=== PATIENT | female | born 1995 ===

== ENCOUNTER 2018-05-21 10:07 | Emergency (ER) | payer OTHER ==
[2018-05-21] MEDS ORDERED: Famotidine IV* 10 MG/ML 2 ML (20 mg) IV SLOW PU ONE (10:39)
[2018-05-21] MEDS ORDERED: Dexamethasone IV* 4 MG/ML 1 ML (4 MG) IV SLOW PU ONE (10:39)
[2018-05-21] MEDS ORDERED: NS 0.9% 1000 ML* 1,000 ML IV ONE (10:39)
--- NOTE | 2018-05-21 10:46 | ED ---
Allergic Reaction/Systemic - HPI Summary HPI Summary: The pt is a 22 y/o female presenting to [facility] c/o an allergic reaction since 08: 00 hrs today but resolved [employer]. She notes labored breathing, pruritic rash on the UE, and throat tightness and hoarseness but denies wheezing. The sx lasted for about 30 minutes during which she went to the [facility] and received Benadryl and Epinephrine at 09:30 hrs which relieved the sx . She denies any hx of contact allergies but notes allergies to chic peas, daniel beans , lentils, tree nuts and peanuts. The pt only drank apple cider prior to the onset of the sx. Her LNMP was in December 2017 and the pt denies any possibility of . - History of Current Complaint Chief Complaint: EDAllergicReaction Time Seen by Provider: 05/21/18 10:32 Hx Obtained From: Patient Onset/Duration: Sudden Onset, Resolved Timing: Lasting Minutes - 30 minutes Severity Currently: None Pain Intensity: 0 Pain Scale Used: 0-10 Numeric Character: Pruritus Alleviating Factor(s): Antihistamines - Benadryl, Epinephrine Associated Signs And Symptoms: Positive: Difficulty Breathing, Hoarseness, Rash , Throat Tightening - Related Hx Possible Reaction To: Unknown - Allergies/Home Medications Allergies/Adverse Reactions: Allergies Allergy/AdvReac Type Severity Reaction Status Date / Time lentils Allergy Anaphylatic Verified 05/21/18 10:14 Shock nut - unspecified Allergy Anaphylatic Verified 05/21/18 10:14 Shock PMH/Surg Hx/FS Hx/Imm Hx Previously Healthy: No Endocrine/Hematology History: Reports: Hx Anemia, Other Endocrine/Hematological Disorders - Javier's disease Denies: Hx Diabetes Cardiovascular History: Denies: Hx Hypertension Respiratory History: Denies: Hx Asthma Sensory History: Denies: Hx Deafness - Cancer History Cancer Type, Location and Year: None reported - Surgical History Surgery Procedure, Year, and Place: Ureteral reimplantation surgery at 5 years old Infectious Disease History: No Infectious Disease History: Denies: Traveled Outside the [place] in Last 30 Days - Family History Known Family History: Negative: Cardiac Disease, Hypertension, Diabetes - Social History Occupation: Student Lives: Dormitory/Roommates Alcohol Use: None Substance Use Type: Reports: None Smoking Status (MU): Never Smoked Tobacco Review of Systems ENT: Other - Positive: Throat tightness, hoarseness Respiratory: Negative - Wheezing , Other - Positive: Dyspnea Positive: Rash - bilateral UE All Other Systems Reviewed And Are Negative: Yes Physical Exam - Summary Physical Exam Summary: Constitutional: Well-developed, Well-nourished, Alert. (-) Distressed Skin: Warm, Dry HENT: Normocephalic; Atraumatic Eyes: Conjunctiva normal Neck: Musculoskeletal ROM normal neck. (-) JVD, (-) Stridor, (-) Tracheal deviation Cardio: Rhythm regular, rate normal, Heart sounds normal; Intact distal pulses; The pedal pulses are 2+ and symmetric. Radial pulses are 2+ and symmetric. (-) Murmur Pulmonary/Chest wall: Effort normal. (-) Respiratory distress, (-) Wheezes, (-) Rales Abd: Soft, (-) epigastric tenderness, (-) Distension, (-) Guarding, (-) Rebound Musculoskeletal: (-) Edema Lymph: (-) Cervical adenopathy Neuro: Alert, Oriented x3 Psych: Mood and affect Normal Triage Information Reviewed: Yes Vital Signs On Initial Exam: Initial Vitals Temp Pulse Resp BP Pulse Ox 98.2 F 63 18 111/70 97 05/21/18 10:08 05/21/18 10:08 05/21/18 10:08 05/21/18 10:08 05/21/18 10:08 Vital Signs Reviewed: Yes Diagnostics - Vital Signs Vital Signs Temp Pulse Resp BP Pulse Ox 05/21/18 10:08 98.2 F 63 18 111/70 97 - Laboratory Lab Statement: Any lab studies that have been ordered have been reviewed, and results considered in the medical decision making process. Allergic Reaction Course/Dx - Course Course Of Treatment: A 22 year-old F presents to the ED with a CC of an allergic reaction since 08:00 hrs today but resolved [employer]. She notes labored breathing, pruritic rash on the UE, and throat tightness and hoarseness but denies wheezing. The sx lasted for about 30 minutes during which she went to the [facility] and received Benadryl and Epinephrine at 09:30 hrs which relieved the sx . She denies any hx of contact allergies but notes allergies to chic peas, daniel beans, lentils, tree nuts and peanuts. The pt only drank apple cider prior to the onset of the sx. A physical exam is unremarkable. All signs and sx of anaphylaxis appear to be resolved. I will administer steroids and monitor for 3 hours for rebound anaphylaxis. In the ED course, pt was given Dexamethasone 8mg IV, Famotidine 40 mg IV and N.s 0.9% 1000 ml IV which improved the symptoms.Patient will be discharged with a final Dx of anaphylaxis. Pt is agreeable with this plan. Allergies noted. - Diagnoses Provider Diagnoses: Anaphylactic reaction Discharge - Sign-Out/Discharge Documenting (check all that apply): Patient Departure - DC - Discharge Plan Condition: Improved Disposition: HOME Prescriptions: EPINEPHrine [Epipen 2-Deshawn] 0.3 mg IM ONCE PRN #2 syringe PRN Reason: Allergy Symptoms Patient Education Materials: Anaphylaxis (ED) Referrals: [facility] [Outside] - 2 Days Additional Instructions: RETURN TO THE EMERGENCY DEPARTMENT FOR CHANGING OR WORSENING SYMPTOMS - Attestation Statements Document Initiated by Scribe: Yes Documenting Scribe: Clare Yepez Provider For Whom Scribe is Documenting (Include Credential): Dr. Augustus James MD Scribe Attestation: Clare Koehler , scribed for Dr. Augustus James MD on 05/21/18 at 1235.
[2018-05-21 12:39] VITALS: BP 120/67
== END 2018-05-21 12:38 | disposition home or self-care (01) ==
LOC: ED 10:07
DX: T78.2XXA Anaphylactic shock, unspecified, initial encounter (principal); R21 Rash and other nonspecific skin eruption; R06.02 Shortness of breath
CPT/HCPCS: 96361; 96374; 96375; 99284; J1100